=== PATIENT | male | born 1990 | race Caucasian/White ===

== ENCOUNTER 2021-04-07 13:34 | Emergency (ER) | payer BC ==
--- NOTE | 2021-04-07 14:30 | EDPHYS ---
Physician Documentation [facility] Name: Louie Garcia Age: 30 yrs Sex: Male : 1990 Arrival Date: 04/07/2021 Time: 13:35 Bed Waiting Private MD: ED Physician Nelson Jean HPI: 04/07 14:26 This 30 yrs old Male presents to ER via Ambulatory with complaints of covid+, unable to jr8 sleep. 14:26 The patient has not experienced similar symptoms in the past. The patient has not jr8 recently seen a physician. This is a 30-year-old male that came to the emergency room for reevaluation after being tested positive for COVID this past Monday. Stated that most symptoms have completely resolved although he is feeling excessively fatigued and did not know if anything else was wrong. Denies any other symptoms at this time.. Historical: - Allergies: 14:24 No Known Allergies; jl7 - Home Meds: 14:24 Adderall XR Oral [Active]; jl7 - PMHx: 14:24 ADHD; jl7 - PSHx: 14:24 None; jl7 - Immunization history:: Client reports receiving the 2nd dose of the Covid vaccine, Pfizer. - Social history:: Smoking status: Patient denies any tobacco usage or history of. ROS: 14:26 Eyes: Negative for injury, pain, redness, and discharge, ENT: Negative for injury, jr8 pain, and discharge, Neck: Negative for injury, pain, and swelling, Cardiovascular: Negative for chest pain, palpitations, and edema, Respiratory: Negative for shortness of breath, cough, wheezing, and pleuritic chest pain, Abdomen/GI: Negative for abdominal pain, nausea, vomiting, diarrhea, and constipation, Back: Negative for injury and pain, MS/Extremity: Negative for injury and deformity, Skin: Negative for injury, rash, and discoloration, Neuro: Negative for headache, weakness, numbness, tingling, and seizure. 14:26 Constitutional: Positive for fatigue. Exam: 14:26 Constitutional: This is a well developed, well nourished patient who is awake, alert, jr8 and in no acute distress. ENT: Nares patent. No nasal discharge, no septal abnormalities noted. Tympanic membranes are normal and external auditory canals are clear. Oropharynx with no redness, swelling, or masses, exudates, or evidence of obstruction, uvula midline. Mucous membranes moist. Cardiovascular: Regular rate and rhythm with a normal S1 and S2. No gallops, murmurs, or rubs. Normal PMI, no JVD. No pulse deficits. Respiratory: Lungs have equal breath sounds bilaterally, clear to auscultation and percussion. No rales, rhonchi or wheezes noted. No increased work of breathing, no retractions or nasal flaring. Abdomen/GI: Soft, non-tender, with normal bowel sounds. No distension or tympany. No guarding or rebound. No evidence of tenderness throughout. Skin: Warm, dry with normal turgor. Normal color with no rashes, no lesions, and no evidence of cellulitis. MS/ Extremity: Pulses equal, no cyanosis. Neurovascular intact. Full, normal range of motion. Neuro: Awake and alert, GCS 15, oriented to person, place, time, and situation. Cranial nerves II-XII grossly intact. Motor strength 5/5 in all extremities. Sensory grossly intact. Cerebellar exam normal. Normal gait. Vital Signs: 14:10 BP 141 / 90; Pulse 81; Resp 17; Temp 97.8; Pulse Ox 100% on R/A; Weight 104.33 kg; jl7 Height 6 ft. 2 in. (187.96 cm); Pain 0/10; 14:10 Body Mass Index 29.53 (104.33 kg, 187.96 cm) jl7 MDM: 14:26 Data reviewed: vital signs, nurses notes, and as a result, I will discharge patient. 8 Data interpreted: Pulse oximetry: on room air is 100 %. Interpretation: normal. Counseling: I had a detailed discussion with the patient and/or guardian regarding: the historical points, exam findings, and any diagnostic results supporting the discharge/admit diagnosis. Medical screen evaluation completed. EMTALA emergency medical condition absent. 14:29 Patient medically screened. jr8 Administered Medications: No medications were administered Disposition: 14:26 SARS. 8 18:16 Co-signature as Attending Physician, Nelson Jean MD I agree with the assessment and rn plan of care. Attestation: The patient's history, exam findings, diagnostics, and a summary of any interventions or procedures was reviewed in detail with Cesar HOLLINGSWORTH. Disposition Summary: 04/07/21 14:29 Discharge Ordered Location: Home jr8 Condition: Stable jr8 Diagnosis - Postviral fatigue syndrome jr8 - SARS-associated coronavirus as the cause of diseases classified elsewhere jr8 Followup: jr8 - With: Private Physician - When: 2 - 3 days - Reason: Recheck today's complaints, Continuance of care, Re-evaluation by your physician Discharge Instructions: - Discharge Summary Sheet jr8 - COVID-19 jr8 Forms: - Medication Reconciliation Form jr8 - Thank You Letter jr8 - Antibiotic Education jr8 - Prescription Opioid Use jr8 Signatures: Nelson Jean MD MD rn Roszak, Josh, PA PA jr8 Vik Suresh RN RN jl7
--- NOTE | 2021-04-07 14:30 | ER ---
Nurse's Notes [facility] Name: Louie Garcia Age: 30 yrs Sex: Male : 1990 Arrival Date: 04/07/2021 Time: 13:35 Bed Waiting Private MD: Diagnosis: Postviral fatigue syndrome;SARS-associated coronavirus as the cause of diseases classified elsewhere Presentation: 04/07 14:10 Chief complaint: Patient states: Positive COVID test x 4 days, reports severe fatigue, jl7 denies shortness of breath. Coronavirus screen: fatigue, Client presents with at least one sign or symptom that may indicate coronavirus-19. Standard/surgical mask placed on the client. Ebola Screen: No symptoms or risks identified at this time. Initial Sepsis Screen: Does the patient meet any 2 criteria? No. Patient's initial sepsis screen is negative. Does the patient have a suspected source of infection? No. Patient's initial sepsis screen is negative. Risk Assessment: Do you want to hurt yourself or someone else? Patient reports no desire to harm self or others. Onset of symptoms was April 04, 2021. 14:10 Method Of Arrival: Ambulatory [facility] 14:10 Acuity: JANICE 5 jl7 Triage Assessment: 14:24 General: Appears in no apparent distress. uncomfortable, Behavior is calm, cooperative, jl7 appropriate for age. Pain: Denies pain. Neuro: Level of Consciousness is awake, alert, obeys commands, Oriented to person, place, time, situation. Cardiovascular: Patient's skin is warm and dry. Respiratory: Airway is patent Respiratory effort is even, unlabored, Respiratory pattern is regular, symmetrical. Derm: Skin is pink, warm \T\ dry. Historical: - Allergies: 14:24 No Known Allergies; jl7 - Home Meds: 14:24 Adderall XR Oral [Active]; jl7 - PMHx: 14:24 ADHD; jl7 - PSHx: 14:24 None; jl7 - Immunization history:: Client reports receiving the 2nd dose of the Covid vaccine, Pfizer. - Social history:: Smoking status: Patient denies any tobacco usage or history of. Vital Signs: 14:10 BP 141 / 90; Pulse 81; Resp 17; Temp 97.8; Pulse Ox 100% on R/A; Weight 104.33 kg; jl7 Height 6 ft. 2 in. (187.96 cm); Pain 0/10; 14:10 Body Mass Index 29.53 (104.33 kg, 187.96 cm) jl7 ED Course: 13:35 Patient arrived in ED. as 14:24 Triage completed. jl7 14:24 Arm band placed on right wrist. jl7 14:26 Cesar Craft PA is PHCP. jr8 14:26 Nelson Jean MD is Attending Physician. jr8 Administered Medications: No medications were administered Outcome: 14:26 Medical screen evaluation completed per provider. Patient declined treatment. jl7 14:29 Discharge ordered by . jr8 14:30 Patient left the ED. jl7 Signatures: Colette Dyer as Cesar Craft PA PA jr8 Vik Suresh, RN RN jl7
[2021-04-07 14:46] VITALS: BP 141/90; TEMP 97.8; O2SAT 100
== END 2021-04-07 14:30 | disposition home or self-care (01) ==
LOC: ER 13:34
DX: U07.1 COVID-19 (principal); F90.9 Attention-deficit hyperactivity disorder, unspecified type
CPT/HCPCS: 99281